=== PATIENT | female | born 1990 | race Caucasian/White ===

== ENCOUNTER 2016-06-07 17:02 | Emergency (ER) | payer OTHER ==
[~2016-06-07] VITALS: Ht 160 cm; Wt 72.6 kg
[~2016-06-07 17:02] MED LIST: AUGMENTIN 875 M1 TAB PO; BACTRIM DS TAB1 EACH PO; IBUPROFEN800 M1 PO; MOTRIN800 MG PO
--- NOTE | 2016-06-07 17:28 | ED GI/GU/ABDOMINAL COMPLAINT ---
History of Present Illness General Chief Complaint: Nausea, Vomiting, Diarrhea Stated Complaint: NAUSEA/VOMITING X1DAY Source: patient Exam Limitations: no limitations Vital Signs & Intake/Output Vital Signs & Intake/Output Vital Signs Date Time Temp Pulse Resp B/P Pulse O2 O2 Flow FiO2 Ox Delivery Rate 06/07 1943 99.1 90 18 135/72 100 Room Air 06/07 1842 97.3 06/07 1800 Room Air Room Air 06/07 1707 97.3 140 18 114/66 98 Room Air Allergies Coded Allergies: NO KNOWN ALLERGIES (03/02/12) Triage Note: PT STATES THAT SHE HAD POSITIVE PREGNACY TEST 3 WEEKS AGO. LMP March, HAS BEEN HAVING N/V SINCE THIS AM , VOMITTED ABOUT 7 TIMES TODAY. HAS APPOINTMENT FOR US TUESDAY, DID NOT CALL OBGYN ABOUT NAUSEA MED. ALSO STATES THAT SHE IS HAVING MID ABD CRAMPING THAT STARTED THIS AFTERNOON Triage Nurses Notes Reviewed? yes ? Y Is pt currently ? No HPI: This patient is A G2A0P2 female with an unremarkable past medical history who presented to the emergency department today for evaluation of nausea, vomiting, abdominal pain, and a positive urine test. The patient reported that she was feeling fine prior to this morning when she started vomiting. She reported that it has been nonbloody, and nonbilious. She has vomited approximately 7 or 8 times today. She reported that it is not always associated with eating food. However, she reported that she has not been able to keep any food or liquid down today. She reported associated nausea and 7 out of 10 upper abdominal pain which is nonradiating and constant. The patient reported that a few days ago she was around some sick contacts. The patient denied any fevers, chills, headaches, visual changes, chest pain, difficulty breathing, urinary burning, urgency, frequency, blood in the urine, vaginal bleeding, leakage of vaginal fluid, vaginal odor, vaginal discharge, or vaginal irritation. She denied any constipation or diarrhea. The patient reported that she has been twice before with no abortions or miscarriages. She reported that her prior 2 pregnancies were uncomplicated vaginal deliveries. She denied any prior history of surgery on her abdomen. The patient reported that she is not on any current medication and does not take any vitamins at this time. Her OB /FLIGHT AGENT is Dr. Davidson. She reported that she is scheduled for an ultrasound in the upcoming week, but has not had any ultrasound to confirm an intrauterine yet. (BERNARDINO CRONIN PA-C) Reconcile Medications Metoclopramide HCl (Reglan) 10 MG TABLET 1 TAB PO 4 TIMES/DAY PRN NAUSEA AND VOMITING 30 minutes before meals and bedtime (APOORVA POTTS,ADRIANA Cordero) Past History Travel History Traveled to [place] past 21 day No Medical History Any Pertinent Medical History? see below for history Neurological: NONE EENT: NONE Cardiovascular: NONE Respiratory: NONE Gastrointestinal: NONE Hepatic: NONE Renal: NONE Musculoskeletal: NONE Psychiatric: NONE Endocrine: NONE Blood Disorders: NONE Cancer(s): NONE FLIGHT AGENT/Reproductive: NONE Surgical History Surgical History: N Psychosocial History What is your primary language Romanian Tobacco Use: Current Daily Use Daily Tobacco Use Amount/Type: => 5 Cigarettes daily ETOH Use: denies use Illicit Drug Use: denies illicit drug use Family History Hx Contributory? No (BERNARDINO CRONIN PA-C) Review of Systems Review of Systems Constitutional: Reports: no symptoms. EENTM: Reports: no symptoms. Respiratory: Reports: no symptoms. Cardiovascular: Reports: no symptoms. GI: Reports: see HPI. Genitourinary: Reports: no symptoms. Musculoskeletal: Reports: no symptoms. Skin: Reports: no symptoms. Neurological/Psychological: Reports: no symptoms. Hematologic/Endocrine: Reports: no symptoms. All Other Systems: Reviewed and Negative (BERNARDINO CRONIN PA-C) Physical Exam Physical Exam Gastrointestinal: normal bowel sounds, soft, no organomegaly, NONDISTENDED. TENDERNESS TO PALPATION IN RUQ AND RUL WITH NO REBOUND OR GUARDING. NO MCBURNY'S POINT TENDERNESS. NEGATIVE ROVSING SIGN. NEGATIVE PSOAS SIGN. POSITIVE SERRANO'S SIGN. NO MASSES APPREACIATED Comments: Well-developed well-nourished person in no acute distress HEENT: Normal EENT exam, head normocephalic, moist mucous membranes Pupils equally round and reactive to light. Neck: Supple, no lymphadenopathy Back: Normal gait. Normal inspection Cardiovascular: Tachycardic with a regular rhythm and no murmurs, rubs, or gallops. No JVD. Respiratory: No respiratory distress. Breath sounds clear to auscultation bilaterally with no wheezes, rales, or rhonchi Extremity: No melenic equal pulses Neuro: Alert oriented x3, cranial nerves II through XII grossly intact. Skin: No appreciable rash on exposed skin, skin is warm and dry. Psych: Mood and affect is normal Core Measures ACS in differential dx? No Severe Sepsis Present: No Septic Shock Present: No (ROSEANNE LOYA,BERNARDINO) Progress Differential Diagnosis: AMI, appendicitis, biliary colic, bowel obstruction, colon cancer, cholecystitis, diverticulitis, ectopic , endometritis, gastritis, hepatitis, ischemic bowel, inflamm bowel dis, intrauterine , kidney stone, ovarian cyst, ovarian torsion, pancreatitis, PID/cervicitis, PUD/ GERD, perforated viscous, threatened AB, UTI/pyelo Plan of Care: Orders Procedure Date/time Status RAPID VIRAL INFLUENZA A 06/07 1915 Complete CULTURE,URINE 06/07 1915 Active LIPASE 06/07 174 Complete DIRECT BILIRUBIN 06/07 174 Complete AMYLASE 06/07 174 Complete EKG 06/07 174 Active URINE 06/07 172 Complete URINALYSIS 06/07 172 Complete PARTIAL THROMBOPLASTIN TIME 06/07 172 Complete PROTHROMBIN TIME 06/07 172 Complete HUMAN BETA HCG TITRE 06/07 172 Complete COMPREHENSIVE METABOLIC PANEL 06/07 172 Complete CBC WITHOUT DIFFERENTIAL 06/07 172 Complete TYPE & SCREEN (NOT X-MATCH) 06/07 172 Complete Laboratory Tests 06/07/16 1931: Urine Color YEL, Urine Clarity CLEAR, Urine pH 6.0, Ur Specific [place] >= 1.030 , Urine Protein 30 H, Urine Ketones >=80, Urine Nitrite NEG, Urine Bilirubin NEG@ICTO, Urine Urobilinogen 0.2, Ur Leukocyte Esterase NEG, Ur Microscopic SEDIMENT EXAMINED, Urine RBC 1-3, Urine WBC 1-3 H, Urine Mucus MANY H, Urine Hemoglobin NEG, Urine Glucose NEG, Urine Test POSITIVE 06/07/16 174: Anion Gap 19 H, Estimated GFR > 60, BUN/Creatinine Ratio 13.3, Glucose 108 H, Calcium 10.1, Total Bilirubin 0.6, Direct Bilirubin 0.4, AST 20, ALT 33, Alkaline Phosphatase 80, Total Protein 8.3 H, Albumin 4.8, Globulin 3.5, Albumin/Globulin Ratio 1.4, Amylase 69, Lipase 91, Beta HCG, Quant 72512.0, PT 11.7, INR 1.12, APTT 25, CBC w Diff MAN DIFF ORDERED, RBC 5.20, MCV 88.0, MCH 29.4, RDW 12.9, MPV 9.1, Gran % 93.8 H, Lymphocytes % 4.1 L, Monocytes % 1.9, Eosinophils % 0.2, Basophils % 0 L, Absolute Granulocytes 17.0 H, Segmented Neutrophils 95 H, Absolute Lymphocytes 0.8 L, Lymphocytes 4 L, Monocytes 1 L , Absolute Monocytes 0.4, Absolute Eosinophils 0, Absolute Basophils 0, Platelet Estimate VERIFIED BY SMEAR, Normocytic RBCs VERIFIED, Normochromic RBCs VERIFIED , PUBS MCHC 33.4, Fld Total RBCs Counted 100 06/07/16 1730: Direct Bilirubin Cancelled, Amylase Cancelled, Lipase Cancelled Microbiology 06/07 1930 URINE ROUT: Urine Culture - RECD Diagnostic Imaging: Viewed by Me: Ultrasound. Discussed w/RAD: Ultrasound. Radiology Impression: PATIENT: JAYLAN URIBE PRESENT AGE: 25 PATIENT ACCOUNT NO: [id number] : 91 LOCATION: [facility] ORDERING PHYSICIAN: BERNARDINO CRONIN PA-C SERVICE DATE: 06/07/16 EXAM TYPE: US - US TRANSVAG EXAMINATION: US TRANSABDOMINAL CLINICAL INFORMATION: First trimester with nausea, vomiting, and abdominal pain. LMP 04/11/2016. Based on dates, as of today the gestational age is 8 weeks 1 day. NORI is 01/16/2017. COMPARISON: None. TECHNIQUE: Transabdominal ultrasound of the pelvis. The patient refused to undergo a transvaginal examination secondary due to much nausea experienced when she reclined. FINDINGS : The anteverted uterus contains a well-formed gestational sac. The mean sac diameter of 2.24 cm corresponds to a gestational age of 7 weeks 2 days. A single pole is seen and the crown-rump length of 0.8 cm corresponds to a gestational age of slightly over 7 weeks. movements were observed and a heart rate is 141 bpm. Scanning of the adnexal region reveals no evidence of adnexal mass, but the ovaries were not well demonstrated. IMPRESSION: Single live intrauterine estimated to be between 7 and 8 weeks gestational age. Size equals dates. DICTATED BY: PATRICIA BRYANT MD DATE/TIME DICTATED:02/13 DIRECTOR OF RESPIRATORY THERAPY:MEGAN DATE/TIME TRANSCRIBED:06/07/161850 CONFIDENTIAL, DO NOT COPY WITHOUT APPROPRIATE AUTHORIZATION. <Electronically signed in Other Vendor System> SIGNED BY: PATRICIA BRYANT MD 06/07/16 8712 Initial ED EKG: normal axis, normal intervals, no ST T wave changes, SINUS TACHYCARDIA, 107 BPM Comments: 06/07/2016 7:10:18 PM: I was at the patient's bedside for reevaluation. She reported that her abdominal pain has completely subsided with IV Tylenol. She also reported that her nausea has subsided with IV Reglan. No active vomiting here in the emergency Department. Updated the patient on the results of her laboratory studies and imaging. She does have a single live intrauterine . No evidence of ectopic. Discussed this patient with Dr. Rutherford. This patient will likely be discharged with outpatient management of her symptoms and a follow-up appointment with her RECRUITING MANAGER. 06/07/2016 7:17:11 PM: I spoke with Dr. Medeiros who is covering the practice. She is requesting an influenza swab as well as a urine culture. Pending these results, this patient will be stable for discharge and outpatient follow-up. (BERNARDINO CRONIN PA-C) Departure Departure Disposition: HOME OR SELF CARE Condition: Stable Clinical Impression Primary Impression: Intrauterine Secondary Impressions: Nausea and vomiting Qualifiers: Vomiting type: unspecified Vomiting Intractability: non-intractable Qualified Code: R11.2 - Nausea with vomiting, unspecified Referrals: PATIENT HAS NO PRIMARY CARE DR (PCP/Family) Additional Instructions: Take Reglan as prescribed for nausea. Take [id number] Tylenol for pain. Please call your RECRUITING MANAGER tomorrow morning to let them know you were seen here in the emergency department and be sure to make a follow-up appointment or attend your previously scheduled appointment. Please return to the emergency department for any worsening symptoms, vaginal bleeding, fevers, chills, or for any other concerns. Please begin taking vitamins. Departure Forms: Customer Survey General Discharge Information Prescriptions: Current Visit Scripts Metoclopramide HCl (Reglan) 1 TAB PO 4 TIMES/DAY PRN NAUSEA AND VOMITING #20 TAB 30 minutes before meals and bedtime (BERNARDINO CRONIN PA-C) PA/CERTIFIED INCOME TAX PREPARER Co-Sign Statement Statement: ED Attending supervision documentation- [] I saw and evaluated the patient. I have also reviewed all the pertinent lab results and diagnostic results. I agree with the findings and the plan of care as documented in the PA's/CERTIFIED INCOME TAX PREPARER's documentation. [X] I have reviewed the ED Record and agree with the PA's/CERTIFIED INCOME TAX PREPARER's documentation. [] Additions or exceptions (if any) to the PAs/CERTIFIED INCOME TAX PREPARER's note and plan are summarized below: [] (APOORVA POTTS,ADRINAA Cordero)
[2016-06-07 18:01] LABS: ABSOLUTE BASOPHIL COUNT 0 /CUMM (0.0-0.2); ABSOLUTE EOSINOPHIL COUNT 0 /CUMM (0.0-0.7); ABSOLUTE LYMPH COUNT 0.8 /CUMM (1.2-3.4); ABSOLUTE MONOCYTE COUNT 0.4 /CUMM (0.10-0.60); BASOPHIL % 0 % (0.0-2.0); EOSINOPHIL % 0.2 % (0-5); HEMATOCRIT 45.7 % (37-47); MEAN CORPUSCULAR HGB 29.4 PG (27.0-31.0); MEAN CORPUSCULAR HGB CONC 33.4 G/DL (33.0-37.0); MEAN PLATELET VOLUME 9.1 FL (7.4-10.4); PLATELET COUNT 251 /CUMM (130-400); RBC DISTRIBUTION WIDTH 12.9 % (11.5-14.5); WHITE BLOOD CELL COUNT 18.1 /CUMM (4.8-10.8)
[2016-06-07 18:08] LABS: GRANULOCYTE % 93.8 % (42.2-75.2)
[2016-06-07 18:10] LABS: PT 11.7 SEC (9.4-12.5); PTT 25 SEC (25-37)
--- NOTE | 2016-06-07 19:02 | ULTRASOUND REPORT ---
EXAMINATION: US TRANSABDOMINAL CLINICAL INFORMATION: First trimester with nausea, vomiting, and abdominal pain. LMP 04/11/2016. Based on dates, as of today the gestational age is 8 weeks 1 day. NORI is 01/16/2017. COMPARISON: None. TECHNIQUE: Transabdominal ultrasound of the pelvis. The patient refused to undergo a transvaginal examination secondary due to much nausea experienced when she reclined. FINDINGS: The anteverted uterus contains a well-formed gestational sac. The mean sac diameter of 2.24 cm corresponds to a gestational age of 7 weeks 2 days. A single pole is seen and the crown-rump length of 0.8 cm corresponds to a gestational age of slightly over 7 weeks. movements were observed and a heart rate is 141 bpm. Scanning of the adnexal region reveals no evidence of adnexal mass, but the ovaries were not well demonstrated. IMPRESSION: Single live intrauterine estimated to be between 7 and 8 weeks gestational age. Size equals dates.
[2016-06-07 19:43] VITALS: BP 135/72
[2016-06-07] MEDS ORDERED: REGLAN10 M1 PO (20:09)
== END 2016-06-07 20:23 ==
LOC: ERH 17:02
PROVIDERS: Physician Assistant
DX: O21.9 Vomiting of pregnancy, unspecified (principal)
CPT/HCPCS: 76817; 81001; 81025; 87086; 87804; 87804-59; 93005; 93010; 96374; 96375; J0131; J2765

== ENCOUNTER 2016-08-08 19:21 | Emergency (ER) | payer OTHER ==
[~2016-08-08] VITALS: Ht 157.5 cm; Wt 72.6 kg
[~2016-08-08 19:21] MED LIST changes: +REGLAN10 M1 PO
--- NOTE | 2016-08-08 19:52 | ED GI/GU/ABDOMINAL COMPLAINT ---
History of Present Illness General Chief Complaint: Abdominal Pain/Flank Pain Stated Complaint: CRAMPING, 16 WEEKS PREG Source: patient Exam Limitations: no limitations Vital Signs & Intake/Output Vital Signs & Intake/Output Vital Signs Date Time Temp Pulse Resp B/P Pulse O2 O2 Flow FiO2 Ox Delivery Rate 08/08 2151 97.7 93 18 133/73 96 Room Air 08/08 1926 96.9 104 18 137/88 98 Room Air ED Intake and Output 08/09 0000 08/08 1200 Intake Total Output Total Balance Patient 160 lb Weight Allergies Coded Allergies: NO KNOWN ALLERGIES (03/02/12) Reconcile Medications Nitrofurantoin Monohyd/M-Cryst (Macrobid 100 MG Capsule) 100 MG CAPSULE 1 CAP PO BID UTI with food Pnv59/Iron,Carb&Fum/FA/Dss/Dha (Citranatal Almo Capsule) 27 MG IRON-1 MG-50 MG-260 MG CAPSULE 1 CAP PO DAILY (Reported) Progesterone,Micronized (Progesterone) 100 MG CAPSULE 1 CAP PO BID HRT ( Reported) Triage Note: PT STATES THAT SHE IS 16 WEEKS AND THAT SHE HAS BEEN HAVING LOW ABD CRAMPING ALL DAY, STATES THAT SHE HAD 1 EPISODE OF BROWN DISCHARGE EARLIER TODAY BUT NONE SINCE, CRAMPING CONTINUES. Triage Nurses Notes Reviewed? yes ? y Is pt currently ? No Onset: Gradual Duration: day(s): Timing: recent history Location: suprapubic Radiation: suprapubic Activities at Onset: none Prior Abdominal Problems: none Modifying Factors: Worsens With: palpation, urinating. Associated Symptoms: abdominal pain HPI: 26-year-old woman , 16 weeks' gestation, presents with suprapubic discomfort, cramping. She noted that she had a small amount of rust colored old blood 1. She has no other vaginal discharge. She notes that she has increased urination with occasional burning. She feels lower abdominal cramps. She has no fever chills nausea vomiting diarrhea. She is otherwise well. Past History Travel History Traveled to [place] past 21 day No Medical History Any Pertinent Medical History? see below for history Neurological: NONE EENT: NONE Cardiovascular: NONE Respiratory: NONE Gastrointestinal: NONE Hepatic: NONE Renal: NONE Musculoskeletal: NONE Psychiatric: NONE Endocrine: NONE Blood Disorders: NONE Cancer(s): NONE LIVESTOCK TRADER/Reproductive: NONE Surgical History Surgical History: N Psychosocial History What is your primary language Bulgarian Tobacco Use: Never used ETOH Use: denies use Illicit Drug Use: denies illicit drug use Family History Hx Contributory? No Review of Systems Review of Systems Constitutional: Reports: no symptoms. EENTM: Reports: no symptoms. Respiratory: Reports: no symptoms. Cardiovascular: Reports: no symptoms. GI: Reports: no symptoms. Genitourinary: Reports: no symptoms. Musculoskeletal: Reports: no symptoms. Skin: Reports: no symptoms. Neurological/Psychological: Reports: no symptoms. Hematologic/Endocrine: Reports: no symptoms. Immunologic/Allergic: Reports: no symptoms. All Other Systems: Reviewed and Negative Physical Exam Physical Exam General Appearance: well developed/nourished, mild distress Head: atraumatic, normal appearance Eyes: Bilateral: normal appearance. Ears, Nose, Throat, Mouth: hearing grossly normal Neck: normal inspection, supple, full range of motion, normal alignment Respiratory: normal breath sounds, chest non-tender, no respiratory distress, quiet respiration Gastrointestinal: normal bowel sounds, soft, mild suprapubic tenderness. No right lower quadrant or left lower quadrant tenderness. No rebound or guarding. Back: normal inspection Extremities: normal range of motion Neurologic/Psych: no motor/sensory deficits, awake, alert, oriented x 3 Skin: intact, normal color, warm/dry Core Measures ACS in differential dx? No Severe Sepsis Present: No Septic Shock Present: No Progress Differential Diagnosis: TIA versus versus other. Plan of Care: Orders Procedure Date/time Status URINALYSIS 08/08 1950 Complete HUMAN BETA HCG TITRE 08/08 1950 Complete COMPREHENSIVE METABOLIC PANEL 08/08 1950 Complete CBC WITHOUT DIFFERENTIAL 08/08 1950 Complete Laboratory Tests 08/08/16 2020: Anion Gap 12, Estimated GFR > 60, BUN/Creatinine Ratio 13.3, Glucose 92, Calcium 10.1, Total Bilirubin 0.2, AST 25, ALT 44, Alkaline Phosphatase 70, Total Protein 6.6, Albumin 3.7, Globulin 2.9, Albumin/Globulin Ratio 1.3, Beta HCG, Quant 14607.0, CBC w Diff NO MAN DIFF REQ, RBC 4.09 L, MCV 87.2, MCH 29.1, RDW 13.5, MPV 10.2, Gran % 73.1, Lymphocytes % 20.5, Monocytes % 5.2, Eosinophils % 1.0, Basophils % 0.2, Absolute Granulocytes 11.2 H, Absolute Lymphocytes 3.1, Absolute Monocytes 0.8 H, Absolute Eosinophils 0.1, Absolute Basophils 0, PUBS MCHC 33.4, Urinalysis LIGHT H, Urine Color YEL, Urine Clarity CLEAR, Urine pH 6.0, Ur Specific [place] 1.020, Urine Protein NEG, Urine Ketones NEG, Urine Nitrite NEG, Urine Bilirubin NEG, Urine Urobilinogen 0.2, Ur Leukocyte Esterase TRACE H, Ur Microscopic SEDIMENT EXAMINED, Urine WBC 3-5 H, Ur Epithelial Cells MOD H, Urine Hemoglobin NEG, Urine Glucose NEG Initial ED EKG: none Comments: Bedside ultrasound by ED Jyoti reveals a fetus with heart movement of 100 4250 bpm. Ample amount of amniotic fluid. appears to be moving all 4 extremities vigorously. Departure Departure Disposition: HOME OR SELF CARE Condition: Stable Clinical Impression Primary Impression: Secondary Impressions: UTI (urinary tract infection) Referrals: PATIENT HAS NO PRIMARY CARE DR (PCP/Family) Departure Forms: Customer Survey General Discharge Information Prescriptions: Current Visit Scripts Nitrofurantoin Monohyd/M-Cryst (Macrobid 100 MG Capsule) 1 CAP PO BID #6 CAP with food Comments Close follow-up encouraged with her coffee supervisor tomorrow.
[2016-08-08] MEDS ORDERED: CITRANATAL HAR1 EACH PO (20:14)
[2016-08-08] MEDS ORDERED: PROGESTERONE100 M2 PO (20:15)
[2016-08-08 20:47] LABS: ABSOLUTE BASOPHIL COUNT 0 /CUMM (0.0-0.2); ABSOLUTE EOSINOPHIL COUNT 0.1 /CUMM (0.0-0.7); ABSOLUTE GRANULOCYTE CT 11.2 /CUMM (1.4-6.5); ABSOLUTE LYMPH COUNT 3.1 /CUMM (1.2-3.4); ABSOLUTE MONOCYTE COUNT 0.8 /CUMM (0.10-0.60); BASOPHIL % 0.2 % (0.0-2.0); GRANULOCYTE % 73.1 % (42.2-75.2); HEMATOCRIT 35.7 % (37-47); MEAN CORPUSCULAR HGB 29.1 PG (27.0-31.0); MEAN CORPUSCULAR HGB CONC 33.4 G/DL (33.0-37.0); MEAN CORPUSCULAR VOLUME 87.2 FL (81.0-99.0); MEAN PLATELET VOLUME 10.2 FL (7.4-10.4); PLATELET COUNT 234 /CUMM (130-400); RBC DISTRIBUTION WIDTH 13.5 % (11.5-14.5); RED BLOOD CELL CT 4.09 /CUMM (4.20-5.40); WHITE BLOOD CELL COUNT 15.3 /CUMM (4.8-10.8)
[2016-08-08] MEDS ORDERED: MACROBID 100 M100 MG PO (21:46)
[2016-08-08 21:51] VITALS: BP 133/73
== END 2016-08-08 22:20 ==
LOC: ERH 19:21
PROVIDERS: Pediatrics
DX: O23.42 Unspecified infection of urinary tract in pregnancy, second trimester (principal); Z3A.16 16 weeks gestation of pregnancy
CPT/HCPCS: 81001

== ENCOUNTER 2017-07-10 15:32 | Inpatient (IN) | payer OTHER ==
[~2017-07-10] VITALS: Ht 160 cm; Wt 94.8 kg
[~2017-07-10 15:32] MED LIST changes: +CITRANATAL HAR1 EACH PO; +MACROBID 100 M100 MG PO; +PEPCID20 M1 PO; +PROGESTERONE100 M2 PO
[2017-07-10 16:10] LABS: ABSOLUTE BASOPHIL COUNT 0 /CUMM (0.0-0.2); ABSOLUTE EOSINOPHIL COUNT 0 /CUMM (0.0-0.7); ABSOLUTE GRANULOCYTE CT 9.7 /CUMM (1.4-6.5); ABSOLUTE LYMPH COUNT 1.8 /CUMM (1.2-3.4); ABSOLUTE MONOCYTE COUNT 0.7 /CUMM (0.10-0.60); BASOPHIL % 0.1 % (0.0-2.0); EOSINOPHIL % 0.2 % (0-5); GRANULOCYTE % 79.2 % (42.2-75.2); MEAN CORPUSCULAR HGB 28.8 PG (27.0-31.0); MEAN CORPUSCULAR HGB CONC 33.4 G/DL (33.0-37.0); MEAN CORPUSCULAR VOLUME 86.1 FL (81.0-99.0); MEAN PLATELET VOLUME 8.6 FL (7.4-10.4); PLATELET COUNT 344 /CUMM (130-400); RBC DISTRIBUTION WIDTH 13.3 % (11.5-14.5); WHITE BLOOD CELL COUNT 12.3 /CUMM (4.8-10.8)
--- NOTE | 2017-07-10 16:59 | ED GI/GU/ABDOMINAL COMPLAINT ---
History of Present Illness General Chief Complaint: Abdominal Pain/Flank Pain Stated Complaint: GALLBLADDER PAIN SINCE 9AM Source: patient, old records Exam Limitations: no limitations Vital Signs & Intake/Output Vital Signs & Intake/Output Vital Signs Date Time Temp Pulse Resp B/P B/P Pulse O2 O2 Flow FiO2 Mean Ox Delivery Rate 07/12 1715 98.6 60 18 118/60 99 Room Air 07/12 0735 98.6 68 18 120/70 96 Room Air 07/11 2306 98.6 62 20 102/60 98 Room Air ED Intake and Output 07/12 0000 07/11 1200 Intake Total 1200 700 Output Total 400 Balance 1200 300 Intake, IV 1200 700 Output, Urine 400 Allergies Coded Allergies: No Known Allergies (07/10/17) Reconcile Medications Estradiol Valerate/Dienogest (Natazia 28 Tablet) (Unknown Strength) TABLET ( Unknown Dose) UNKNOWN (Reported) Triage Note: PT TO ED FOR C/C OF "GALLBLADDER PAIN" PT CURRENTLY HAS GALL STONES AND IS SCHEDULED FOR SURGERY THIS MONTH BUT PAIN BECAME VERY SEVERE THIS MORNING AROUND 0900. DENIES N/V. AFEBRILE. Triage Nurses Notes Reviewed? yes ? N Is pt currently ? No Onset: Morning Duration: hour(s): (SEVERAL) Timing: multiple episodes today Location: right upper quadrant Radiation: back Activities at Onset: eating No Modifying Factors: none Associated Symptoms: NAUSEA HPI: This is a 27-year-old female presents via chief complaint of epigastric and right upper quadrant abdominal pain since 9:30 after eating leftover dinner yesterday. She states she ate peppers. Patient with known gallbladder disease due to have outpatient cholecystectomy on the by Dr. Novak. Denies fever or chills. She states the pain is severe and has been unable to take a deep breath in today. She denies any diarrhea. Past History Travel History Traveled to [place] past 21 day No Medical History Any Pertinent Medical History? see below for history Neurological: NONE EENT: NONE Cardiovascular: NONE Respiratory: NONE Gastrointestinal: NONE Hepatic: NONE Renal: NONE Musculoskeletal: NONE Psychiatric: NONE Endocrine: NONE Blood Disorders: NONE Cancer(s): NONE PHOTOGRAMMETRIST/Reproductive: NONE Surgical History Surgical History: non-contributory, N Psychosocial History What is your primary language Azerbaijani Tobacco Use: Current Daily Use Daily Tobacco Use Amount/Type: => 5 Cigarettes daily ETOH Use: denies use Illicit Drug Use: denies illicit drug use Family History Hx Contributory? No Review of Systems Review of Systems Constitutional: Reports: chills. Denies: fever. EENTM: Reports: no symptoms. Respiratory: Denies: cough, short of breath. Cardiovascular: Denies: chest pain, palpitations. GI: Reports: abdominal pain, nausea. Denies: diarrhea, vomiting. Genitourinary: Reports: no symptoms. Musculoskeletal: Reports: back pain. Skin: Reports: no symptoms. Neurological/Psychological: Reports: anxiety. Hematologic/Endocrine: Denies: bruising, bleeding, polyuria, polydipsia. Immunologic/Allergic: Reports: no symptoms. All Other Systems: Reviewed and Negative Physical Exam Physical Exam General Appearance: well developed/nourished, alert, awake, anxious, mild distress, moderate distress, obese Head: atraumatic, normal appearance Eyes: Bilateral: normal appearance, PERRL, EOMI. Ears, Nose, Throat, Mouth: hearing grossly normal, moist mucous membrane Neck: normal inspection, supple, full range of motion Respiratory: normal breath sounds, chest non-tender, no respiratory distress Cardiovascular: regular rate/rhythm Peripheral Pulses: 2+ radial (R), 2+ radial (L) Gastrointestinal: soft, NO TENDERNESS LOWER ABDOMEN. pATIENT WOULD NOT LET ME EXAMINE HER UPPER ABDOMEN Back: normal inspection, normal range of motion Neurologic/Psych: no motor/sensory deficits, awake, alert, oriented x 3 Skin: intact, normal color, warm/dry Core Measures ACS in differential dx? No Sepsis Present: No Sepsis Focused Exam Completed? No Progress Differential Diagnosis: biliary colic, cholecystitis, CHOLEDOCHOLITHIASIS, CHOLANGITIS, PUD Plan of Care: Orders Procedure Date/time Status LIPASE 07/13 0600 Active HEPATIC FUNCTION PANEL 07/13 06 Active CBC WITHOUT DIFFERENTIAL 07/13 06 Active BASIC ELECTROLYTES PLUS BUN&CR 07/13 06 Active AMYLASE 07/13 06 Active Regular Diet 07/12 D Active Nutritional Intake, Monitor 07/12 0825 Active Pain Treatment and Response 07/12 0701 Active Wound Care/Dressing 07/11 2018 Active Current Medications Sig/Clarita Start time Last Medication Dose Stop Time Status Admin Oxycodone/ 1 TAB Q4P PRN 07/12 1730 AC Acetaminophen (Percocet) Oxycodone/ 2 TAB Q4P PRN 07/12 1730 AC Acetaminophen (Percocet) Ampicillin Sodium/ 3,000 MG Q6H 07/11 1900 AC 07/12 Sulbactam Sodium 190 (Unasyn) Sodium Chloride 100 ML (Normal Saline 0.9%) Ondansetron HCl 4 MG Q6P PRN 07/11 1700 AC 07/12 (Zofran) 171 Promethazine HCl 12.5 MG Q6P PRN 07/11 170 AC (Phenergen) 07/17 185 Lorazepam 0.5 MG Q6 PRN 07/11 161 AC (Ativan) 07/18 161 Laboratory Tests 07/12/17 0608: Anion Gap 12, Estimated GFR > 60, BUN/Creatinine Ratio 6.7 L, Total Bilirubin 0.8, Direct Bilirubin 0.6 H, AST 243 H, ALT 531 H, Alkaline Phosphatase 148 H, Total Protein 6.7, Albumin 3.8, Amylase 49, Lipase 370 H, CBC w Diff NO MAN DIFF REQ, RBC 4.45, MCV 87.4, MCH 29.1, MCHC 33.3, RDW 13.9, MPV 9.7, Gran % 84.9 H, Lymphocytes % 9.9 L, Monocytes % 5.2, Eosinophils % 0, Basophils % 0, Absolute Granulocytes 11.1 H, Absolute Lymphocytes 1.3, Absolute Monocytes 0.7 H, Absolute Eosinophils 0, Absolute Basophils 0 D/W DR WOODARD AND DR VEGA. WILL BE ADMITTED TO SURGICAL SERVICE, WILL NEED GI CONSULTATION, POSSIBLE ERCP/MRCP. IV ABX WERE GIVEN. Initial ED EKG: none Departure Departure Time of Disposition: 1722 Disposition: STILL A PATIENT Condition: Stable Clinical Impression Primary Impression: Cholecystitis Referrals: Patient Has No Primary Care Dr (PCP/Family) Departure Forms: Customer Survey General Discharge Information Admission Note Spoke With: Lamine POTTS,Rad N. Documentation of Exam: Documentation of any treatments & extenuating circumstances including Concerns Regarding Discharge (functional status, medication knowledge or non-compliance, living conditions, etc.) that warrant an admission rather than observation: [IV ABX, PAIN CONTROL, IV FLUIDS, NPO AFTER MIDNIGHT, CONSIDER MRCP/GI CONSULTATION]
[2017-07-10 17:52] LABS: PT 10.8 SEC (9.4-12.5); PTT 29 SEC (25-37)
--- NOTE | 2017-07-10 19:01 | Admission Core Measures ---
Acute Coronary Syndrome (CM) ACS Core Measures Acute Coronary Syndrome Diagnosis No Congestive Heart Failure (NEW) CHF Core Measures Congestive Heart Failure Diagnosis No Cerebrovascular Accident (NEW) CVA Core Measures CVA/TIA Diagnosis No Venous Thromboembolism VTE Core Theresa (View Protocol) VTE Risk Factors Smoker No Mechanical VTE Prophylaxis d/t N/A MechProphylax Ordered No VTE Pharm Prophylaxis d/t NA PharmProphylax ordered Problem List As ranked by this Provider includes Assessment & Plan 1. Cholecystitis HOME MEDS Home Med List Famotidine (Pepcid) 20 MG TABLET 1 TAB PO BID GASTRITIS
[2017-07-10] MEDS ORDERED: NATAZIA 28 TAB1 EACH PO (19:26)
[2017-07-10 20:58] VITALS: BP 102/60
--- NOTE | 2017-07-10 21:57 | History & Physical Pre-Op ---
General Information and [facility] MD Statement: I have seen and personally examined VEE URIBE and documented this H&P. The patient is a 27 year old F who presented with a patient stated chief complaint of [abdominal pain]. Source of Information: patient Exam Limitations: no limitations History of Present Illness: Vee is a 27 year old female who presents to the hospital today with an acute onset of abdominal pain that began at around 9 am this morning. She states that she was in a hurry this morning and ate left over dinner for breakfast. Her meal consisted of a calzone with hot peppers. At the time her discomfort began, she attributed her pain to the peppers. However, the pain continued and worsened. She was unable to take a deep breath without discomfort and the pain reached a severe level thereby necessitating a visit to the emergency department. She denies vomitting or diarrhea. Vee is a known patient to Dr. Novak, she has a history of cholelithiasis and she was scheduled to have a laparoscopic cholecystectomy as an outpatient later this month. Bloodwork that was obtained upon arrival in the Emergency Department today showed an elevation in her LFTs when compared to her most recent labwork. This raises the concern of choledocolithiasis. She denies a past medical history. Her only rx'd medication is bcp, however, she does not currently take them. Her surgical history is significant for a tonsillectomy as a small child. She has no known drug allergies. Her family history is as follows: Maternal history of crohns disease and ulcerative colitis as well as iddm, htn, and a history of an CT several years ago. Paternal history of IDDM and htn. Social history is signficant for social etoh use and occasional smoking. She lives at home with her signficant other and has three children for which she provides care. Allergies/Medications Allergies: Coded Allergies: No Known Allergies (07/10/17) Home Med list Estradiol Valerate/Dienogest (Natazia 28 Tablet) (Unknown Strength) TABLET ( Unknown Dose) UNKNOWN (Reported) Past History Medical History Blood Transfusion Hx: No Neurological: NONE EENT: NONE Cardiovascular: NONE Respiratory: NONE Gastrointestinal: NONE Hepatic: NONE Renal: NONE Musculoskeletal: NONE Psychiatric: NONE Endocrine: NONE Blood Disorders: anemia Cancer(s): NONE MOTION PICTURE NARRATOR/Reproductive: NONE History of MRSA: No History of VRE: No History of CDIFF: No Isolation History: Standard Surgical History Pertinent Surgical History: non-contributory, tonsillectomy Past Family/Social History Psychosocial History Where Do You Live? Home Services at Home None Smoking Status: Current Everyday Smoker ETOH Use: occasional use Illicit Drug Use: denies illicit drug use Functional Ability ADLs Independent: dressing, eating, toileting, bathing. Ambulation: independent Review of Systems Review of Systems Constitutional: Reports: malaise. EENTM: Reports: no symptoms. Cardiovascular: Reports: no symptoms. Respiratory: Reports: no symptoms. GI: Reports: abdominal pain. Genitourinary: Reports: no symptoms. Musculoskeletal: Reports: no symptoms. Skin: Reports: no symptoms. Neurological/Psychological: Reports: no symptoms. Hematologic/Endocrine: Reports: no symptoms. Immunologic/Allergic: Reports: no symptoms. All Other Systems: Reviewed and Negative Comments Negative hcg test in ER today Exam & Diagnostic Data Last 24 Hrs of Vital Signs/I&O Vital Signs Date Time Temp Pulse Resp B/P B/P Pulse O2 O2 Flow FiO2 Mean Ox Delivery Rate 07/10 2057 98.0 62 20 102/60 99 Room Air 07/10 2018 96.2 55 18 115/54 97 Room Air 07/10 181 98.2 66 20 130/70 99 Room Air 07/10 1543 98.0 100 15 124/89 98 Room Air Room Air Physical Exam: General: Alert and oriented x3, no acute distress Cardiac: RRR, s1s2 Pulm: CTA bilaterally Abd: Soft, tender to palpation in epigastric region, +bs Extremties: Moves all extremities, distal sensation grossly intact. Skin warm and well perfused. DP pulses palpable bialterally Assessment/Plan Assessment/Plan: This is a 27 year old female with symptomatic cholelithiasis and question of choledocolithiasis -Admit to general surgery -IV antibiotics: Unasyn -NPO, IV hydration -IV pain regimen: Morphine -Recheck LFTs in am Consider: MRCP vs ERCP if LFTs elevated Lap jason to follow Will discuss plan of care with Dr. Raman As Ranked By This Provider Problem List: 1. Cholecystitis
--- NOTE | 2017-07-11 01:33 | RADIOLOGY REPORT ---
EXAMINATION: XR PORTABLE CHEST CLINICAL INFORMATION: Chest tightness COMPARISON: 10/10/2014 TECHNIQUE: Portable frontal view of the chest was obtained. FINDINGS: The lungs are clear with no focal consolidation. No evidence of pneumothorax, pulmonary edema, or pleural effusions. The cardiomediastinal silhouette is unremarkable. No acute osseous findings. IMPRESSION: No acute cardiopulmonary findings.
[2017-07-11 07:02] VITALS: BP 132/78
[2017-07-11 08:14] LABS: ABSOLUTE BASOPHIL COUNT 0 /CUMM (0.0-0.2); ABSOLUTE EOSINOPHIL COUNT 0.1 /CUMM (0.0-0.7); ABSOLUTE GRANULOCYTE CT 5.3 /CUMM (1.4-6.5); ABSOLUTE MONOCYTE COUNT 0.5 /CUMM (0.10-0.60); BASOPHIL % 0.3 % (0.0-2.0); GRANULOCYTE % 77.3 % (42.2-75.2); HEMATOCRIT 39.2 % (37-47); MEAN CORPUSCULAR HGB CONC 33.6 G/DL (33.0-37.0); MEAN CORPUSCULAR VOLUME 86.2 FL (81.0-99.0); MEAN PLATELET VOLUME 9.2 FL (7.4-10.4); PLATELET COUNT 289 /CUMM (130-400); RBC DISTRIBUTION WIDTH 13.5 % (11.5-14.5); RED BLOOD CELL CT 4.55 /CUMM (4.20-5.40); WHITE BLOOD CELL COUNT 6.9 /CUMM (4.8-10.8)
[2017-07-11 08:26] LABS: PT 11.2 SEC (9.4-12.5)
--- NOTE | 2017-07-11 08:28 | PN- General Surgery ---
See Addendum Subjective Subjective: Awake, alert Anxious regarding surgery Denies any pain or nausea Objective Vital Signs and I&Os Vital Signs Date Time Temp Pulse Resp B/P B/P Pulse O2 O2 Flow FiO2 Mean Ox Delivery Rate 07/11 07 97.8 68 20 132/78 97 07/10 2057 98.0 62 20 102/60 99 Room Air 07/10 2018 96.2 55 18 115/54 97 Room Air 07/10 1816 98.2 66 20 130/70 99 Room Air 07/10 1543 98.0 100 15 124/89 98 Room Air Room Air Intake & Output 07/11 1600 07/11 0800 07/11 0000 07/10 1600 07/10 0800 07/10 0000 Intake Total 700 1000 Output Total 400 Balance 300 1000 Intake, IV 700 1000 Output, Urine 400 Patient 209 lb Weight Physical Exam: VSS, afebrile General: alert and oriented times three No jaundice Abd: soft, good bs, tender to moderate palpation epigastric area Current Medications: Current Medications Sig/Clarita Start time Last Medication Dose Route Stop Time Status Admin Ampicillin Sodium/ 3,000 MG Q6H 07/11 0100 AC 07/11 Sulbactam Sodium IV 0605 Sodium Chloride 100 ML Ampicillin Sodium/ 3,000 MG ONCE ONE 07/10 171 DC 07/10 Sulbactam Sodium IV 07/10 1744 1844 Sodium Chloride 100 ML Dextrose/Sodium 1,000 ML .Q10H 07/10 1900 AC 07/11 Chloride IV 0606 Heparin Sodium 5,000 UNIT Q8 07/10 2200 DC (Porcine) SC Lorazepam 0.5 MG ONE PRN 07/11 0830 AC PO 07/18 0829 Morphine Sulfate 2 MG Q2P PRN 07/10 1900 AC 07/10 IV 1942 Morphine Sulfate 4 MG Q2P PRN 07/10 1900 AC 07/10 IV 2206 Morphine Sulfate 6 MG ONCE ONE 07/10 1715 DC 07/10 IV 07/10 1716 1735 Ondansetron HCl 4 MG Q6P PRN 07/10 1900 AC IV Ondansetron HCl 4 MG ONCE ONE 07/10 1715 DC 07/10 IV 07/10 1716 1735 Promethazine HCl 12.5 MG Q6P PRN 07/10 1900 AC IV 07/17 1859 Sodium Chloride 1,000 ML BOLUS ONE 07/10 1715 DC 07/10 IV 07/10 8023 173 Assessment/Plan Assessment/Plan 27yo with known history of gallstones admitted with pain and increased lft's await follow up labs this am Keep npo/ivf unasyn ?GI vs OR hep sc for dvt ppx Pono/Novak to see Core Measures Venous Thromboembolism VTE Risk Factors Smoker No Mechanical VTE Prophylaxis d/t N/A MechProphylax Ordered No VTE Pharm Prophylaxis d/t NA PharmProphylax ordered
--- NOTE | 2017-07-11 14:50 | MRI REPORT ---
EXAMINATION: MR ABDOMEN WITHOUT CONTRAST/MRCP CLINICAL INFORMATION: Abdominal pain. Transaminitis. Presumptive diagnosis of gallstones. Rule out CBD stone. COMPARISON: Right upper quadrant ultrasound dated 04/15/2017. CT scan of the abdomen and pelvis dated 04/07/2016. TECHNIQUE: An MRI scan of the abdomen was performed using multiple imaging sequences and imaging planes. As per the MRCP protocol, heavily T2-weighted 3-D high-resolution MRCP sequences were obtained in the coronal plane along with thin and thick slab coronal images and coronal MIP reconstructions obtained on the technologist workstation under concurrent physician supervision. FINDINGS: Evaluation is limited due to patient's difficulties with suspending respiration. GALLBLADDER, BILIARY TREE: The gallbladder is well distended and demonstrates multiple small rounded filling defects within the gallbladder lumen, consistent with multiple gallstones. There are several tiny densities seen adherent to the nondependent wall of the gallbladder, perhaps reflective of multiple tiny adherent gallstones versus subtle nodularity as can be seen with adenomyomatosis. No pericholecystic edema is seen. The intra and extra hepatic bile ducts are normal. Common bile duct measures 0.4 cm in maximal diameter. No intraluminal filling defect is seen. Cystic duct is normal. LIVER: Liver is normal in size and shows diffuse signal dropout on opposed phase sequences, consistent with hepatic steatosis. No focal hepatic mass is seen. PANCREAS: The pancreatic duct is normal, measuring 0.2 cm in diameter. The pancreas is unremarkable. SPLEEN: Unremarkable. ADRENAL GLANDS AND KIDNEYS: Unremarkable. BOWEL LOOPS: There is a small fat-containing umbilical hernia. Included small and large bowel loops are unremarkable. LYMPHOVASCULAR STRUCTURES: Unremarkable. BONES: Unremarkable. IMPRESSION: 1. Multiple tiny gallstones are seen distending the gallbladder lumen. There may also be tiny gallstones adherent to the nondependent wall of the gallbladder versus slight subtle nodularity of the wall as can be seen with adenomyomatosis. No pericholecystic fluid or stranding is seen. 2. No intra or extrahepatic ductal dilatation is noted and no evidence of choledocholithiasis is seen. 3. Diffuse hepatic steatosis. 4. Small fat-containing umbilical hernia. Findings discussed with Dr. Muñoz 07/11/2017, approximately 2:30 PM.
--- NOTE | 2017-07-11 15:57 | Operative Report ---
Operative/Inv Procedure Report Surgery Date: 07/11/17 Name of Procedure: Laparoscopic cholecystectomy with intraoperative cholangiogram Pre-Operative Diagnosis: Choledocholithiasis Post-Operative Diagnosis: same Estimated Blood Loss: scant Surgeon/[employer]: Marc Novak M.D./Lila SARAH Anesthesia: general endotracheal tube Drains: None Specimens: Gallbladder Operative Indication: See preoperative H&P Operative/Procedure Note Note: After informed consent patient is brought to the operating room and laid supine. General anesthesia was obtained and her abdomen was prepped and draped. The skin above the umbilicus infiltrated with local anesthesia and a curvilinear incision made sharply. We came down through the subcutaneous tissues bluntly and grasped the fascia with Saskia's. A fasciotomy was created sharply and stay sutures placed. The peritoneum was entered sharply and a blunt Lo port was placed. Pneumoperitoneum was achieved. 3, 5 mm ports were placed in the epigastrium and right upper quadrant after local anesthesia was instilled and under direct vision the camera. She's placed in reverse Trendelenburg and rotated towards the left. The gallbladder is identified. It was grasped at the dome and retracted towards the head. Infundibulum was then grasped. Adhesions to the undersurface were taken down with blunt and cautery dissection. We dissected both sides the triangle Calot peritoneal tissue with cautery. The cystic duct was tortuous and filled with small stones. The adhesions to itself as well as the infundibulum were taken down with cautery. I was unable to straighten out the cystic duct and milked the stones back into the gallbladder. The artery was medial and its normal anatomic position. It was cauterized medially to allow it to be mobilized away from the duct. Bulverde was cleared of areolar tissue with cautery. The artery was doubly ligated with clips. A proximal clip was placed on the infundibulum. Ductotomy is created and plangent Demetrius catheter placed into the cystic duct. Under fluoroscopic imaging clear to Demetrius was performed. There was normal filling of the common bile duct and intrahepatic ducts. There was no filling into the duodenum. There was a meniscus appearing and to the filling of the common duct. I then passed the cholangiocatheter into the bile duct and attempt to push the stone through. Repeat cholangiogram showed persistence of the distal CBD obstruction. We then concluded that portion of the operation, ligated doubly cystic duct clips. Gallbladder is removed from the fossa electrocautery. It was placed in Endo Catch bag and cinched up. Right upper quadrant was and suction irrigated normal saline. Hemostasis achieved with cautery. The ports were then removed and the gallbladder delivered and passed off the field. The fascia was closed with 0 Vicryl suture. Skin incisions closed with 4-0 Vicryl. Steri-Strips and sterile dressing applied. Sponge and needle counts are correct. Findings: Distal CBD stone
[2017-07-11 16:30] VITALS: BP 140/96
--- NOTE | 2017-07-11 17:14 | PN- General Surgery ---
Subjective Subjective: Post op check Awake and alert post op No pain, mild nausea Tolerating clear liquids Objective Vital Signs and I&Os Vital Signs Date Time Temp Pulse Resp B/P B/P Pulse O2 O2 Flow FiO2 Mean Ox Delivery Rate 07/11 701 97.8 68 20 132/78 97 07/10 2057 98.0 62 20 102/60 99 Room Air 07/10 2018 96.2 55 18 115/54 97 Room Air 07/10 1816 98.2 66 20 130/70 99 Room Air Intake & Output 07/11 0000 07/10 1600 07/10 0000 Intake Total 159 684 6867 Output Total 400 Balance 061 224 6317 Intake, IV 521 139 7809 Output, Urine 400 Patient 209 lb Weight Physical Exam: VSS stable in the recovery room bp 122/82 HR 78 regular RR 16 Sat 99% 2LNC General; alert and oriented times three Chest: clear anteriorly bilaterally, RRR Abd: softly distended, hypoactive bs, appropriately tender around incisions Ext: warm, no edema Wds; dressed, dry Assessment/Plan Assessment/Plan 27 yo female s/p lap jason with intraop IOC - positive for a retained stone clears now npo overnight fu labs in am GI to see for ERCP in am continue unasyn for cholangitis hep sc for dvt ppx alps Core Measures Venous Thromboembolism VTE Risk Factors Smoker No Mechanical VTE Prophylaxis d/t N/A MechProphylax Ordered No VTE Pharm Prophylaxis d/t NA PharmProphylax ordered
--- NOTE | 2017-07-11 17:35 | RADIOLOGY REPORT ---
EXAMINATION: CR ABDOMEN/INTRAOPERATIVE FLUOROSCOPY CLINICAL INDICATION: Cholangiogram. COMPARISON: MRI scan of the abdomen dated 07/11/2017. TECHNIQUE/FINDINGS: Fluoroscopic equipment was dedicated to the operating room for the performance of an intraoperative procedure. Several (7) spot films were acquired and are archived in PACS. Please refer to operative notes for procedural detail. FLUOROSCOPY TIME: 0.9 minutes. IMPRESSION: Administrative dictation for intraoperative fluoroscopy and image archiving in PACS. Please refer to operative notes for details.
--- NOTE | 2017-07-11 17:57 | Cons- Gastroenterology ---
General Information and HPI Consulting Request Date of Consult: 07/11/17 ([facility]/GASTROENTEROLOGY) Requested By: Marc Novak M.D. Reason for Consult: Choledocholithiasis Source of Information: patient, old records History of Present Illness: 27-year-old female with months of intermittent abdominal pain and known cholelithiasis, with scheduled laparoscopic cholecystectomy for later this month. She presented yesterday with acute, severe pain and was admitted. She denies nausea, vomiting, fever, jaundice. This morning her liver enzymes were elevated including hyperbilirubinemia. MRCP was negative for choledocholithiasis. However intraoperative cholangiogram was positive for distal CBD occlusion, meniscus sign, and inability to pass the cholangiogram catheter into the duodenum. The patient has no previous GI disease, recurrent or chronic GI symptoms, or no history of liver disease. Past medical history unrevealing. No allergies. Family history: Mother with IBD. No liver disease. Social history: Occasional tobacco, social alcohol, mother of 3 children. Allergies/Medications Allergies: Coded Allergies: No Known Allergies (07/10/17) Home Med List: Estradiol Valerate/Dienogest (Natazia 28 Tablet) (Unknown Strength) TABLET ( Unknown Dose) UNKNOWN (Reported) Current Medications: Current Medications Sig/Clarita Start time Last Medication Dose Route Stop Time Status Admin Ampicillin Sodium/ 3,000 MG Q6H 07/11 1900 AC Sulbactam Sodium IV Sodium Chloride 100 ML Ampicillin Sodium/ 3,000 MG Q6H 07/11 0100 AC / Sulbactam Sodium IV 07/11 1859 1346 Sodium Chloride 100 ML Dextrose/Sodium 1,000 ML .Q10H 07/12 0100 AC Chloride IV Dextrose/Sodium 1,000 ML .Q10H 07/10 1900 AC /12 Chloride IV 07/12 0059 0606 Heparin Sodium 5,000 UNIT Q8 07/11 2200 CAN (Porcine) SC Heparin Sodium 5,000 UNIT Q8 07/10 2200 DC (Porcine) SC Lorazepam 0.5 MG Q6 PRN 07/11 1615 AC PO 07/18 1614 Lorazepam 0.5 MG ONE PRN 07/11 0830 DC 07/11 PO 07/18 0829 1344 Midazolam HCl 0 .STK-MED ONE 07/11 1421 DC .ROUTE Morphine Sulfate 2 MG Q2P PRN 07/11 1700 AC IV Morphine Sulfate 4 MG Q2P PRN 07/11 1700 AC IV Morphine Sulfate 2 MG Q2P PRN 07/10 1900 DC 07/10 IV 1942 Morphine Sulfate 4 MG Q2P PRN 07/10 1900 DC 07/10 IV 2206 Ondansetron HCl 4 MG Q6P PRN 07/11 170 AC IV Ondansetron HCl 4 MG Q6P PRN 07/10 190 DC IV Promethazine HCl 12.5 MG Q6P PRN 07/11 170 AC IV 07/17 185 Promethazine HCl 12.5 MG Q6P PRN 07/10 190 DC IV 07/17 185 Sodium Chloride 1,000 ML BOLUS ONE 07/10 1715 DC 07/10 IV 07/10 181 173 Past History Travel History Traveled to [place] past 21 day No Medical History Blood Transfusion Hx: No Neurological: NONE EENT: NONE Cardiovascular: NONE Respiratory: NONE Gastrointestinal: NONE Hepatic: NONE Renal: NONE Musculoskeletal: NONE Psychiatric: NONE Endocrine: NONE Blood Disorders: anemia Cancer(s): NONE FOOD SERVICE CASHIER/Reproductive: NONE Surgical History Surgical History: non-contributory, tonsillectomy Psychosocial History Where Do You Live? Home Services at Home: None Smoking Status: Current Everyday Smoker ETOH Use: occasional use Illicit Drug Use: denies illicit drug use Functional Ability ADLs Independent: dressing, eating, toileting, bathing. Ambulation: independent Review of Systems Review of Systems Constitutional: Denies: chills, fever. EENTM: Denies: icterus, epistaxis. Cardiovascular: Denies: chest pain, edema. Respiratory: Denies: cough, short of breath. GI: Reports: see HPI. Genitourinary: Denies: dysuria, hematuria. Musculoskeletal: Denies: muscle stiffness, neck pain. Skin: Denies: jaundice, lesions. Neurological/Psychological: Denies: cognitive dysfunction, tremors. Hematologic/Endocrine: Denies: bruising, bleeding. Exam & Diagnostic Data Vital Signs and I&O Vital Signs Date Time Temp Pulse Resp B/P B/P Pulse O2 O2 Flow FiO2 Mean Ox Delivery Rate 07/11 701 97.8 68 20 132/78 97 07/10 2057 98.0 62 20 102/60 99 Room Air 07/10 2018 96.2 55 18 115/54 97 Room Air 02/11 1817 98.2 66 20 130/70 99 Room Air Intake & Output 07/11 04007/10 0400 Intake Total 1500 1000 Output Total 400 Balance 1100 1000 Intake, IV 1500 1000 Output, Urine 400 Patient 209 lb Weight Physical Exam: Well-developed, well-nourished, in no apparent distress. Alert and oriented. In the PACU, postoperative. Sclera anicteric. Head and neck normal. Heart regular rhythm. Lungs clear. No skin lesion, rash or jaundice. Abdomen postoperative, soft. Extremities without edema, and was intact distal pulses. Results Pertinent Lab Results: Laboratory Tests 07/11 07/10 0734 1727 Chemistry Sodium (137 - 145 mmol/L) 138 Potassium (3.5 - 5.1 mmol/L) 4.1 Chloride (98 - 107 mmol/L) 103 Carbon Dioxide (22 - 30 mmol/L) 27 Anion Gap (5 - 16) 9 BUN (7 - 17 mg/dL) 6 L Creatinine (0.5 - 1.0 mg/dL) 0.7 Estimated GFR (>60 ml/min) > 60 BUN/Creatinine Ratio (7 - 25 %) 8.6 Total Bilirubin (0.2 - 1.3 mg/dL) 2.6 H Direct Bilirubin (< 0.4 mg/dL) 2.1 H AST (14 - 36 U/L) 644 H ALT (9 - 52 U/L) 677 H Alkaline Phosphatase (<127 U/L) 151 H Total Protein (6.3 - 8.2 g/dL) 6.8 Albumin (3.5 - 5.0 g/dL) 4.1 Coagulation PT (9.4 - 12.5 SEC) 11.2 Cancelled INR (0.90 - 1.19) 1.07 Cancelled APTT Cancelled Hematology CBC w Diff NO MAN DIFF REQ WBC (4.8 - 10.8 /CUMM) 6.9 RBC (4.20 - 5.40 /CUMM) 4.55 Hgb (12.0 - 16.0 G/DL) 13.2 Hct (37 - 47 %) 39.2 MCV (81.0 - 99.0 FL) 86.2 MCH (27.0 - 31.0 PG) 29.0 MCHC (33.0 - 37.0 G/DL) 33.6 RDW (11.5 - 14.5 %) 13.5 Plt Count (130 - 400 /CUMM) 289 MPV (7.4 - 10.4 FL) 9.2 Gran % (42.2 - 75.2 %) 77.3 H Lymphocytes % (20.5 - 51.1 %) 14.7 L Monocytes % (1.7 - 9.3 %) 6.7 Eosinophils % (0 - 5 %) 1.0 Basophils % (0.0 - 2.0 %) 0.3 Absolute Granulocytes (1.4 - 6.5 /CUMM) 5.3 Absolute Lymphocytes (1.2 - 3.4 /CUMM) 1.0 L Absolute Monocytes (0.10 - 0.60 /CUMM) 0.5 Absolute Eosinophils (0.0 - 0.7 /CUMM) 0.1 Absolute Basophils (0.0 - 0.2 /CUMM) 0 07/10 1548 Chemistry Sodium (137 - 145 mmol/L) 140 Potassium (3.5 - 5.1 mmol/L) 4.3 Chloride (98 - 107 mmol/L) 103 Carbon Dioxide (22 - 30 mmol/L) 27 Anion Gap (5 - 16) 10 BUN (7 - 17 mg/dL) 13 Creatinine (0.5 - 1.0 mg/dL) 0.7 Estimated GFR (>60 ml/min) > 60 BUN/Creatinine Ratio (7 - 25 %) 18.6 Glucose (65 - 99 mg/dL) 110 H Calcium (8.4 - 10.2 mg/dL) 10.5 H Total Bilirubin (0.2 - 1.3 mg/dL) 1.0 AST (14 - 36 U/L) 746 H ALT (9 - 52 U/L) 449 H Alkaline Phosphatase (<127 U/L) 139 H Total Protein (6.3 - 8.2 g/dL) 7.8 Albumin (3.5 - 5.0 g/dL) 4.8 Globulin (1.9 - 4.2 gm/dL) 3.0 Albumin/Globulin Ratio (1.1 - 2.2 %) 1.6 Amylase (30 - 110 U/L) 51 Lipase (23 - 300 U/L) 216 Total Beta HCG (NEGATIVE) NEGATIVE Coagulation PT (9.4 - 12.5 SEC) 10.8 INR (0.90 - 1.19) 1.03 APTT (25 - 37 SEC) 29 Hematology CBC w Diff NO MAN DIFF REQ WBC (4.8 - 10.8 /CUMM) 12.3 H RBC (4.20 - 5.40 /CUMM) 5.00 Hgb (12.0 - 16.0 G/DL) 14.4 Hct (37 - 47 %) 43.0 MCV (81.0 - 99.0 FL) 86.1 MCH (27.0 - 31.0 PG) 28.8 MCHC (33.0 - 37.0 G/DL) 33.4 RDW (11.5 - 14.5 %) 13.3 Plt Count (130 - 400 /CUMM) 344 MPV (7.4 - 10.4 FL) 8.6 Gran % (42.2 - 75.2 %) 79.2 H Lymphocytes % (20.5 - 51.1 %) 14.5 L Monocytes % (1.7 - 9.3 %) 6.0 Eosinophils % (0 - 5 %) 0.2 Basophils % (0.0 - 2.0 %) 0.1 Absolute Granulocytes (1.4 - 6.5 /CUMM) 9.7 H Absolute Lymphocytes (1.2 - 3.4 /CUMM) 1.8 Absolute Monocytes (0.10 - 0.60 /CUMM) 0.7 H Absolute Eosinophils (0.0 - 0.7 /CUMM) 0 Absolute Basophils (0.0 - 0.2 /CUMM) 0 Assessment/Plan Assessment/Recommendations: Biliary colic with extended episode, and hyperbilirubinemia/ transaminitis. Although the MRCP was negative for choledocholithiasis, the intra-cholangiogram was positive for distal CBD obstruction (no clear-cut filling defect, but no drainage, meniscus sign, and inability to pass the cholangiogram catheter into the duodenum). Recommendations * LFTs in the morning * Nothing by mouth after midnight * If develops fever, please obtain blood cultures and start broad-spectrum antibiotics (Unasyn or third-generation cephalosporin) * ERCP tomorrow Consult Acknowledgment - Thank you for your consult request.
[2017-07-11 23:06] VITALS: BP 102/60
[2017-07-12 07:35] VITALS: BP 120/70
--- NOTE | 2017-07-12 08:07 | PN- General Surgery ---
See Addendum Subjective Subjective: Complains of soreness to the general abdominal region. No nausea no vomiting no fever no flulike illness. Objective Vital Signs and I&Os Vital Signs Date Time Temp Pulse Resp B/P B/P Pulse O2 O2 Flow FiO2 Mean Ox Delivery Rate 07/12 0735 98.6 68 18 120/70 96 Room Air 07/11 2306 98.6 62 20 102/60 98 Room Air 07/11 1630 98.6 92 18 140/96 97 Room Air Intake & Output 07/12 1600 07/12 0800 07/12 0000 07/11 1600 07/11 0800 07/11 0000 Intake Total 800 400 911 817 7414 Output Total 400 Balance 800 400 872 690 9425 Intake, IV 800 400 130 560 5412 Output, Urine 400 Patient 209 lb Weight Physical Exam: Well-developed well-nourished no apparent distress. HEENT: Atraumatic, extraocular motion intact Neck: Supple, no lymphadenopathy Respiratory: No respiratory distress Abdomen: Dressings clean dry and intact. Abdomen is obese, soft, tenderness in the right upper quadrant epigastric region as appropriate. Positive bowel sounds Extremities: No edema, no calf pain Neuro: Alert and oriented x3 Psych: Mood affect normal, normal memory normal judgment. Skin: Warm and dry, no rash on exposed skin Results Last 48 Hours of Labs: Laboratory Tests 07/12 07/11 07/10 0608 0734 1727 Chemistry Sodium (137 - 145 mmol/L) Pending 138 Potassium (3.5 - 5.1 mmol/L) Pending 4.1 Chloride (98 - 107 mmol/L) Pending 103 Carbon Dioxide (22 - 30 mmol/L) Pending 27 Anion Gap (5 - 16) Pending 9 BUN (7 - 17 mg/dL) Pending 6 L Creatinine (0.5 - 1.0 mg/dL) Pending 0.7 Estimated GFR (>60 ml/min) > 60 BUN/Creatinine Ratio (7 - 25 %) Pending 8.6 Total Bilirubin (0.2 - 1.3 mg/dL) Pending 2.6 H Direct Bilirubin (< 0.4 mg/dL) Pending 2.1 H AST (14 - 36 U/L) Pending 644 H ALT (9 - 52 U/L) Pending 677 H Alkaline Phosphatase (<127 U/L) Pending 151 H Total Protein (6.3 - 8.2 g/dL) Pending 6.8 Albumin (3.5 - 5.0 g/dL) Pending 4.1 Amylase Pending Lipase Pending Coagulation PT (9.4 - 12.5 SEC) 11.2 Cancelled INR (0.90 - 1.19) 1.07 Cancelled APTT Cancelled Hematology CBC w Diff Pending NO MAN DIFF REQ WBC (4.8 - 10.8 /CUMM) Pending 6.9 RBC (4.20 - 5.40 /CUMM) Pending 4.55 Hgb (12.0 - 16.0 G/DL) Pending 13.2 Hct (37 - 47 %) Pending 39.2 MCV (81.0 - 99.0 FL) Pending 86.2 MCH (27.0 - 31.0 PG) Pending 29.0 MCHC (33.0 - 37.0 G/DL) Pending 33.6 RDW (11.5 - 14.5 %) Pending 13.5 Plt Count (130 - 400 /CUMM) Pending 289 MPV (7.4 - 10.4 FL) Pending 9.2 Gran % (42.2 - 75.2 %) 77.3 H Lymphocytes % (20.5 - 51.1 %) 14.7 L Monocytes % (1.7 - 9.3 %) 6.7 Eosinophils % (0 - 5 %) 1.0 Basophils % (0.0 - 2.0 %) 0.3 Absolute Granulocytes (1.4 - 6.5 /CUMM) 5.3 Absolute Lymphocytes (1.2 - 3.4 /CUMM) 1.0 L Absolute Monocytes (0.10 - 0.60 /CUMM) 0.5 Absolute Eosinophils (0.0 - 0.7 /CUMM) 0.1 Absolute Basophils (0.0 - 0.2 /CUMM) 0 07/10 1548 Chemistry Sodium (137 - 145 mmol/L) 140 Potassium (3.5 - 5.1 mmol/L) 4.3 Chloride (98 - 107 mmol/L) 103 Carbon Dioxide (22 - 30 mmol/L) 27 Anion Gap (5 - 16) 10 BUN (7 - 17 mg/dL) 13 Creatinine (0.5 - 1.0 mg/dL) 0.7 Estimated GFR (>60 ml/min) > 60 BUN/Creatinine Ratio (7 - 25 %) 18.6 Glucose (65 - 99 mg/dL) 110 H Calcium (8.4 - 10.2 mg/dL) 10.5 H Total Bilirubin (0.2 - 1.3 mg/dL) 1.0 AST (14 - 36 U/L) 746 H ALT (9 - 52 U/L) 449 H Alkaline Phosphatase (<127 U/L) 139 H Total Protein (6.3 - 8.2 g/dL) 7.8 Albumin (3.5 - 5.0 g/dL) 4.8 Globulin (1.9 - 4.2 gm/dL) 3.0 Albumin/Globulin Ratio (1.1 - 2.2 %) 1.6 Amylase (30 - 110 U/L) 51 Lipase (23 - 300 U/L) 216 Total Beta HCG (NEGATIVE) NEGATIVE Coagulation PT (9.4 - 12.5 SEC) 10.8 INR (0.90 - 1.19) 1.03 APTT (25 - 37 SEC) 29 Hematology CBC w Diff NO MAN DIFF REQ WBC (4.8 - 10.8 /CUMM) 12.3 H RBC (4.20 - 5.40 /CUMM) 5.00 Hgb (12.0 - 16.0 G/DL) 14.4 Hct (37 - 47 %) 43.0 MCV (81.0 - 99.0 FL) 86.1 MCH (27.0 - 31.0 PG) 28.8 MCHC (33.0 - 37.0 G/DL) 33.4 RDW (11.5 - 14.5 %) 13.3 Plt Count (130 - 400 /CUMM) 344 MPV (7.4 - 10.4 FL) 8.6 Gran % (42.2 - 75.2 %) 79.2 H Lymphocytes % (20.5 - 51.1 %) 14.5 L Monocytes % (1.7 - 9.3 %) 6.0 Eosinophils % (0 - 5 %) 0.2 Basophils % (0.0 - 2.0 %) 0.1 Absolute Granulocytes (1.4 - 6.5 /CUMM) 9.7 H Absolute Lymphocytes (1.2 - 3.4 /CUMM) 1.8 Absolute Monocytes (0.10 - 0.60 /CUMM) 0.7 H Absolute Eosinophils (0.0 - 0.7 /CUMM) 0 Absolute Basophils (0.0 - 0.2 /CUMM) 0 Assessment/Plan Assessment/Plan 27 yo female postop day 1 s/p lap jason with intraop IOC - positive for a retained stone Nothing by mouth fu labs GI for ERCP today continue unasyn for cholangitis hep sc for dvt ppx alps pain meds as needed Core Measures Venous Thromboembolism VTE Risk Factors Smoker No Mechanical VTE Prophylaxis d/t N/A MechProphylax Ordered No VTE Pharm Prophylaxis d/t NA PharmProphylax ordered
[2017-07-12 08:36] LABS: ABSOLUTE BASOPHIL COUNT 0 /CUMM (0.0-0.2); ABSOLUTE EOSINOPHIL COUNT 0 /CUMM (0.0-0.7); ABSOLUTE LYMPH COUNT 1.3 /CUMM (1.2-3.4); ABSOLUTE MONOCYTE COUNT 0.7 /CUMM (0.10-0.60)
[2017-07-12 08:58] LABS: ABSOLUTE GRANULOCYTE CT 11.1 /CUMM (1.4-6.5); BASOPHIL % 0 % (0.0-2.0); EOSINOPHIL % 0 % (0-5); HEMATOCRIT 38.9 % (37-47); MEAN CORPUSCULAR HGB 29.1 PG (27.0-31.0); MEAN CORPUSCULAR HGB CONC 33.3 G/DL (33.0-37.0); MEAN CORPUSCULAR VOLUME 87.4 FL (81.0-99.0); MEAN PLATELET VOLUME 9.7 FL (7.4-10.4); PLATELET COUNT 301 /CUMM (130-400); RBC DISTRIBUTION WIDTH 13.9 % (11.5-14.5); RED BLOOD CELL CT 4.45 /CUMM (4.20-5.40)
[2017-07-12 09:00] LABS: WHITE BLOOD CELL COUNT 13.1 /CUMM (4.8-10.8)
[2017-07-12 09:30] LABS: GRANULOCYTE % 84.9 % (42.2-75.2)
--- NOTE | 2017-07-12 14:44 | Proc Note ERCP ---
ERCP Procedure Procedure Date: 07/12/17 GI Procedure(s): ERCP Research Biostatistician: Rodrigo Muñoz M.D. ASA Classification: III Indications: Biliary obstruction (cholelithiasis status post cholecystectomy, elevated LFTs/ bilirubin, positive intraoperative cholangiogram for distal CBD obstruction and suspected choledocholithiasis) Instrument: duodenoscope Meds Received: MAC Patient's Tolerance: good Complications: none Procedure: The patient signed informed consent, was brought to the OR suite and turned into the prone position, and was medicated. Pulse oximetry, blood pressure and cardiac monitoring were performed continuously throughout the procedure. The Olympus high-definition V duodenoscope was inserted into the mouth and advanced to the duodenum. Unasyn was administered IV during the procedure. The stomach was not examined. The gastric outlet and duodenum were normal. The papilla was normal. A small pancreatic injection was performed. The Omnitome/ Acrobat wire was repositioned and the common bile duct cannulated and opacified. There was normal caliber and contour to the common bile duct, common hepatic duct, and hepatic ducts. There were no filling defects. The distal duct was examined carefully, and there was no evident filling defect/meniscus/stricture. There was normal tapering of the intra-ampullary portion. The cystic duct remnant was normal. There was no extravasation/leak. A balloon occlusion cholangiogram was normal. The duct was swept twice with the inflated balloon, from bifurcation through the papilla out to the duodenum ( without significant resistance), without extraction of stone or debris. Indomethacin 100 mg was administered RI. Impression: * Normal cholangiogram, without evident choledocholithiasis * Clinically, the patient likely passed a CBD stone Recommendations: * Follow LFTs to normalization * Diet as per surgery CC: Kishore POTTS,Mrac Dos Santos
--- NOTE | 2017-07-12 15:55 | RADIOLOGY REPORT ---
EXAMINATION: CR ABDOMEN/INTRAOPERATIVE FLUOROSCOPY/ERCP CLINICAL INDICATION: ERCP in OR for CBD stones (cholecystectomy done 07/11/2017) COMPARISON: MRI scan of the abdomen dated 07/11/2017. Intraoperative fluoroscopy dated 07/11/2017. TECHNIQUE/FINDINGS: Fluoroscopic equipment was dedicated to the operating room for the performance of an intraoperative procedure/ERCP. Several (14) spot films were acquired and are archived in PACS. There is opacification of the common bile duct and intrahepatic ducts and the cystic duct remnant. These appear normal in caliber. No definite filling defect is seen. There is also partial opacification of the pancreatic duct, which appears normal in caliber. Please refer to operative notes for procedural detail. FLUOROSCOPY TIME: 1 minute 48 seconds. IMPRESSION: Administrative dictation for intraoperative fluoroscopy and image archiving in PACS. Please refer to operative notes for details.
[2017-07-12 17:15] VITALS: BP 118/60
[2017-07-12 21:59] VITALS: BP 118/60
[2017-07-13 06:14] VITALS: BP 114/68
--- NOTE | 2017-07-13 07:32 | PN- General Surgery ---
See Addendum Subjective Subjective: Reports nausea this morning, for which she just received zofran. Reports pain controlled with percocet. Walking without difficulty. Passing flatus. Voiding well. Anticipates discharge today. Want prescription for percocet sent to [facility] on [address]. Objective Vital Signs and I&Os Vital Signs Date Time Temp Pulse Resp B/P B/P Pulse O2 O2 Flow FiO2 Mean Ox Delivery Rate 07/13 0614 98.4 63 18 114/68 96 Room Air 07/12 2159 98.2 60 18 118/60 97 Room Air 07/12 1715 98.6 60 18 118/60 99 Room Air 07/12 0735 98.6 68 18 120/70 96 Room Air Intake & Output 07/13 0800 07/13 0000 07/12 1600 07/12 0807/12 0000 07/11 1600 Intake Total 240 950 600 800 400 800 Output Total Balance 240 950 600 800 400 800 Intake, IV 230 600 800 400 800 Intake, Oral 240 720 0 Number 0 Bowel Movements Physical Exam: General - alert & oriented x 3. comfortable. no acute distress. Lungs - clear bilaterally. no w/r/r. Cardiac - s1s2. reg. Abdomen - soft. dressings c/d/i. expected tasia-incisional tenderness. Extremities - warm bilaterally. no c/c/e. calves soft and nontender b/l. Current Medications: Current Medications Sig/Clarita Start time Last Medication Dose Route Stop Time Status Admin Ampicillin Sodium/ 3,000 MG Q6H 07/11 1900 AC 07/13 Sulbactam Sodium IV 0623 Sodium Chloride 100 ML Dextrose/Sodium 1,000 ML .Q10H 07/12 0100 DC 07/12 Chloride IV 0559 Fentanyl Citrate 100 MCG .STK-MED ONE 07/12 1334 DC IM 07/12 1335 Indomethacin 50 MG .STK-MED ONE 07/12 1606 DC MI 07/12 1607 Indomethacin Sodium 1 MG .STK-MED ONE 07/12 1514 DC IV 07/12 1515 Iopamidol 9 ML .STK-MED ONE 07/12 1515 DC INT 07/12 1516 Lidocaine 2 MARY KAY .STK-MED ONE 07/12 1514 DC TOP 07/12 1515 Lorazepam 0.5 MG Q6 PRN 07/11 1615 AC PO 07/18 1614 Midazolam HCl 2 MG .STK-MED ONE 07/12 1334 DC IM 07/12 1335 Morphine Sulfate 2 MG Q2P PRN 07/11 1700 DC 07/12 IV 1204 Morphine Sulfate 4 MG Q2P PRN 07/11 1700 DC 07/12 IV 1525 Ondansetron HCl 4 MG Q6P PRN 07/11 1700 AC 07/13 IV 0710 Oxycodone/ 1 TAB Q4P PRN 07/12 1730 AC Acetaminophen PO Oxycodone/ 2 TAB Q4P PRN 07/12 1730 AC 07/12 Acetaminophen PO 2339 Promethazine HCl 12.5 MG Q6P PRN 07/11 1700 AC IV 07/17 1859 Results Last 48 Hours of Labs: Laboratory Tests 07/13 07/12 0632 0608 Chemistry Sodium (137 - 145 mmol/L) Pending 141 Potassium (3.5 - 5.1 mmol/L) Pending 4.1 Chloride (98 - 107 mmol/L) Pending 101 Carbon Dioxide (22 - 30 mmol/L) Pending 28 Anion Gap (5 - 16) Pending 12 BUN (7 - 17 mg/dL) Pending 4 L Creatinine (0.5 - 1.0 mg/dL) Pending 0.6 Estimated GFR (>60 ml/min) > 60 BUN/Creatinine Ratio (7 - 25 %) Pending 6.7 L Total Bilirubin (0.2 - 1.3 mg/dL) Pending 0.8 Direct Bilirubin (< 0.4 mg/dL) Pending 0.6 H AST (14 - 36 U/L) Pending 243 H ALT (9 - 52 U/L) Pending 531 H Alkaline Phosphatase (<127 U/L) Pending 148 H Total Protein (6.3 - 8.2 g/dL) Pending 6.7 Albumin (3.5 - 5.0 g/dL) Pending 3.8 Amylase (30 - 110 U/L) Pending 49 Lipase (23 - 300 U/L) Pending 370 H Hematology CBC w Diff Pending NO MAN DIFF REQ WBC (4.8 - 10.8 /CUMM) Pending 13.1 H RBC (4.20 - 5.40 /CUMM) Pending 4.45 Hgb (12.0 - 16.0 G/DL) Pending 13.0 Hct (37 - 47 %) Pending 38.9 MCV (81.0 - 99.0 FL) Pending 87.4 MCH (27.0 - 31.0 PG) Pending 29.1 MCHC (33.0 - 37.0 G/DL) Pending 33.3 RDW (11.5 - 14.5 %) Pending 13.9 Plt Count (130 - 400 /CUMM) Pending 301 MPV (7.4 - 10.4 FL) Pending 9.7 Gran % (42.2 - 75.2 %) 84.9 H Lymphocytes % (20.5 - 51.1 %) 9.9 L Monocytes % (1.7 - 9.3 %) 5.2 Eosinophils % (0 - 5 %) 0 Basophils % (0.0 - 2.0 %) 0 Absolute Granulocytes (1.4 - 6.5 /CUMM) 11.1 H Absolute Lymphocytes (1.2 - 3.4 /CUMM) 1.3 Absolute Monocytes (0.10 - 0.60 /CUMM) 0.7 H Absolute Eosinophils (0.0 - 0.7 /CUMM) 0 Absolute Basophils (0.0 - 0.2 /CUMM) 0 Assessment/Plan Assessment/Plan This 27 yo female is POD#2 s/p lap jason and +ioc, PPD#1 s/p ercp zofran prn nausea advance diet as tolerated percocet / tylenol prn pain control add colace BID oob/ambulation hep sc added - dvt ppx d/c unasyn f/u labs likely d/c home today will d/w Core Measures Venous Thromboembolism VTE Risk Factors Smoker No Mechanical VTE Prophylaxis d/t N/A MechProphylax Ordered No VTE Pharm Prophylaxis d/t NA PharmProphylax ordered
[2017-07-13] MEDS ORDERED: ZOFRAN4 M2 PO (07:40)
[2017-07-13] MEDS ORDERED: PERCOCET 5-3251 EACH PO (07:40)
[2017-07-13] MEDS ORDERED: DOCUSATE SODIU100 M3 PO (07:40)
--- NOTE | 2017-07-13 07:42 | Patient Discharge Instructions ---
Discharge Instructions General Discharge Information You were seen/treated for: Choledocholithiasis You had these procedures: Surgery Date: 07/11/17 Name of Procedure: Laparoscopic cholecystectomy with intraoperative cholangiogram Procedure Date: 07/12/17 GI Procedure(s): ERCP Watch for these problems: fever>101.3, increased pain, redness/swelling/drainage No bath, but you may shower: Yes Other wound care: ok to remove bandaids. leave white steri strips in place. keep incisions clean & dry. Diet Continue normal diet: Yes Recommended Diet: Low Fat Activity Full Activity/No Limits: No Activity Self Limited: Yes Pounds, do NOT lift more than: 10 Other activity limits: no heavy lifting. no strenuous activity. Acute Coronary Syndrome Inclusion Criteria At DC or during hospital stay patient has or had the following: ACS DIAGNOSIS No Discharge Core Measures Meds if any: Prescribed or Continued at Discharge Meds if any: NOT Prescribed or Continued at Discharge Congestive Heart Failure Inclusion Criteria At DC or during hospital stay patient has or had the following: CHF DIAGNOSIS No Discharge Core Measures Meds if any: Prescribed or Continued at Discharge Meds if any: NOT Prescribed or Continued at Discharge Cerebrovascular accident Inclusion Criteria At DC or during hospital stay patient has or had the following: CVA/TIA Diagnosis No Discharge Core Measures Meds if any: Prescribed or Continued at Discharge Meds if any: NOT Prescribed or Continued at Discharge Venous thromboembolism Inclusion Criteria VTE Diagnosis No VTE Type NONE VTE Confirmed by (Test) NONE Discharge Core Measures - Per Current guidelines, there needs to be overlap - treatment for the first 5 days of Warfarin therapy. - If discharged on Warfarin prior to 5 days of - overlap therapy, the patient will need to be - assessed for post discharge needs including - *Post discharge parental anticoagulation - *Warfarin and/or parental anticoagulation education - *Follow up date to check INR post discharge At least 5 days overlap therapy as Inpatient No Meds if any: Prescribed or Continued at Discharge Note: Overlap Therapy is Warfarin and Anticoagulant Meds if any: NOT Prescribed or Continued at Discharge
[2017-07-13 08:15] LABS: ABSOLUTE BASOPHIL COUNT 0 /CUMM (0.0-0.2); ABSOLUTE EOSINOPHIL COUNT 0.1 /CUMM (0.0-0.7); ABSOLUTE GRANULOCYTE CT 3.6 /CUMM (1.4-6.5); ABSOLUTE LYMPH COUNT 2.6 /CUMM (1.2-3.4); ABSOLUTE MONOCYTE COUNT 0.5 /CUMM (0.10-0.60); BASOPHIL % 0.5 % (0.0-2.0); EOSINOPHIL % 1.9 % (0-5); GRANULOCYTE % 52.9 % (42.2-75.2); HEMATOCRIT 36.4 % (37-47); MEAN CORPUSCULAR HGB 29.1 PG (27.0-31.0); MEAN CORPUSCULAR HGB CONC 33.2 G/DL (33.0-37.0); MEAN CORPUSCULAR VOLUME 87.7 FL (81.0-99.0); MEAN PLATELET VOLUME 9.6 FL (7.4-10.4); PLATELET COUNT 260 /CUMM (130-400); RBC DISTRIBUTION WIDTH 13.5 % (11.5-14.5); RED BLOOD CELL CT 4.15 /CUMM (4.20-5.40); WHITE BLOOD CELL COUNT 6.9 /CUMM (4.8-10.8)
--- NOTE | 2017-07-13 15:17 | Surgical Discharge Summary ---
Visit Information Visit Dates Admission Date: 07/10/17 Discharge Date: 07/13/17 History of Present Illness Chief Complaint: abdominal pain Medical History Blood Transfusion Hx: No Neurological: NONE EENT: NONE Cardiovascular: NONE Respiratory: NONE Gastrointestinal: NONE Hepatic: NONE Renal: NONE Musculoskeletal: NONE Psychiatric: NONE Endocrine: NONE Blood Disorders: anemia Cancer(s): NONE BASKETBALL SCOUT/Reproductive: NONE History of MRSA: No History of VRE: No History of CDIFF: No Isolation History: Standard Surgical History Pertinent Surgical History: cholecystectomy, tonsillectomy Psychosocial History Where Do You Live? Home Who Do You Live With? Significant Other Services at Home: None What is Your Primary Language? Japanese ETOH Use: occasional use Review of Systems: see preop hp Hospital Course Course Attending Physician: Marc Novak M.D. Primary Care Physician: Patient Has No Primary Care Dr Hospital Course: Patient admitted to the surgical service for choledocholithiasis. MRCP the next morning showed no evidence of common bile duct stone. She was taken the operating room for laparoscopic cholecystectomy with intraoperative cholangiogram. Clinical findings are concerning of distal common duct stone. She was taken for ERCP the next day but no common duct stone was seen. She was subsequent starting a diet and discharged home the following morning Allergies: Coded Allergies: No Known Allergies (07/10/17) Significant Procedures: Laparoscopic cholecystectomy with cholangiogram ERCP Disposition Summary Disposition Principal Diagnosis: Choledocholithiasis Additional Diagnosis: None Discharge Disposition: home or self care Discharge Instructions General Discharge Information Code Status: Full Code Patient's Diet: Regular low-fat Patient's Activity: No lifting more than 20 pounds Follow-Up Instructions/Appts: 2 weeks Medications at Discharge Discharge Medications: Continue taking these medications: Estradiol Valerate/Dienogest (Natazia 28 Tablet) (Unknown Strength) TABLET 1 Tablet ORAL Every Day Qty = 28 Comments: NOT GIVEN IN HOSPITAL Start taking the following new medications: Docusate Sodium (Docusate Sodium) 100 MG CAPSULE 100 Milligram ORAL TWICE DAILY as needed for CONSTIPATION Qty = 30 No Refills Instructions: stool softener Comments: NOT GIVEN IN HOSPITAL Oxycodone HCl/Acetaminophen (Percocet 5-325 MG Tablet) 5 MG-325 MG TABLET 1-2 Tablet ORAL EVERY 4-6 HOURS NEEDED as needed for pain control Qty = 30 No Refills Instructions: tylenol alternatively. do not combine. Comments: Last Taken: 07/13/17 Time: 0830AM Ondansetron HCl (Zofran) 4 MG TABLET 1 Tablet ORAL Every 6-8 Hours as Needed as needed for NAUSEA/VOMITING Qty = 12 No Refills Comments: ZOFRAN IV GIVEN 0700AM 07/13/17
== END 2017-07-13 15:16 | DRG 263 ==
LOC: ERH 15:32 → 2NB 17:23 → ERHI 17:23 → 2NB 17:23 → ENRESERV 19:54 → ENTRNSPT 20:20 → 2NB 20:20 → EDTRNSPTSTS 20:40 → 2NB 20:49 → CMPTRNSPT 20:59 → ENTRNSPT 07-11 17:19 → CMPTRNSPT 07-11 17:45 → ENPENDDIS 07-13 07:46 → 2NB 07-13 15:16
PROVIDERS: Emergency Medicine; Nurse Practitioner; Physician Assistant; Physician Assistant Medical; Physician Assistant Surgical
PROC: 0FT44ZZ Resection of Gallbladder, Percutaneous Endoscopic Approach (ICD-10-PCS; principal; 2017-07-11)
PROC: BF13YZZ Fluoroscopy of Gallbladder and Bile Ducts using Other Contrast (ICD-10-PCS; 2017-07-11)
PROC: 0F798ZZ Dilation of Common Bile Duct, Via Natural or Artificial Opening Endoscopic (ICD-10-PCS; 2017-07-12)
DX: K80.65 Calculus of gallbladder and bile duct with chronic cholecystitis with obstruction (principal); F17.210 Nicotine dependence, cigarettes, uncomplicated; E66.9 Obesity, unspecified; Z68.37 Body mass index [BMI] 37.0-37.9, adult; R74.0 Nonspecific elevation of levels of transaminase and lactic acid dehydrogenase [LDH]
CPT/HCPCS: 2NBSP; 74181; 36415; 36592; 71045; 74018; 82436; 93005; 93010; C9399; J0131; J1644; J2405; J2550; J7042; Q9967